=== PATIENT | female | born 1980 | race Caucasian/White ===

== ENCOUNTER 2020-09-07 15:39 | Outpatient (CLI) | payer OTHER, SELFPAY ==
--- NOTE | ~2020-09-07 | CT_ITS ---
EXAMINATION: CT abdomen w con INDICATION: Abdominal wall hernias TECHNIQUE: Computed tomographic images of the abdomen were obtained after the administration of 100 c c of Omnipaque 350 intravenous contrast. The dose-length product (DLP) was 922.62 mGy-cm. Automated e xposure control and iterative reconstruction technique were employed. COMPARISON: 04/21/2013 FINDINGS: The visualized lung bases are clear. The heart size is normal. The gallbladder is surgicall y absent. The liver, spleen, pancreas, and adrenal glands are normal. A 1.3 cm low-attenuation lesion of the right kidney upper pole likely represents a cyst. The left kidney is unremarkable. There are no pathologically enlarged abdominal lymph nodes. There is severe atrophy of the rectus abdominis mus cles. The partially imaged fat-containing umbilical hernia is noted. There are multiple small epigast deven hernias containing fat which are best appreciated on the sagittal reconstructed images. The large st is in the right upper quadrant with a 2 cm neck (image 76). IMPRESSION: 1. Partially imaged fat-containing umbilical hernia and several small fat-containing epigastric herni as, the largest with a 2 cm neck in the right upper quadrant. Reviewed, dictated and finalized at location A. [facility] IMPRESSION: 1. Partially imaged fat-containing umbilical hernia and several small fat-conta ining epigastric hernias, the largest with a 2 cm neck in the right upper quadr ant.
== END 2020-09-07 15:40 | disposition home or self-care (01) ==
PROVIDERS: PCP Internal Medicine; Visit Provider Internal Medicine
DX: R10.11 Right upper quadrant pain (principal); Z85.528 Personal history of other malignant neoplasm of kidney; K42.9 Umbilical hernia without obstruction or gangrene
CPT/HCPCS: 74160; Q9967